=== PATIENT | male | born 1975 | race Caucasian/White ===

== ENCOUNTER 2017-05-27 14:49 | Observation (INO) | payer OTHER, SELFPAY ==
[2017-05-27] VITALS (9 sets, daily range): BP systolic 130–193; BP diastolic 62–98; PULSE 52–68; RESP 16–24; TEMP 98.1–98.8; O2SAT 95–100
[~2017-05-27] VITALS: Ht 180.3 cm; Wt 96.0 kg
[~2017-05-27 14:49] MED LIST: PROM25SU8 PO; TYLE3 PO; Z.0.NO CURRENT MEDS
[2017-05-27] MEDS ORDERED: TEST200I13 IM (15:12)
[2017-05-27] MEDS ORDERED: LISI10TA3 PO (15:12)
[2017-05-27] MEDS ORDERED: ONDANSETRON HCL 4 MG/2 ML VIAL IV PUSH ONE (15:15)
[2017-05-27] MEDS ORDERED: SODIUM CHLOR 0.9% 1000 ML INJ 1,000 ML IV ONE ×2 (15:15→16:30)
[2017-05-27] MEDS ORDERED: ASPIRIN 81 MG CHEW TAB PO ONE (15:15)
[2017-05-27] MEDS ORDERED: KETOROLAC TROMETHAMINE 30 MG/ML (IVP) VIAL IV PUSH ONE (15:15)
[2017-05-27] MEDS ORDERED: SODIUM CHLORIDE 0.9% FLUSH 10 ML FLUSH IVF PRN (15:15)
[2017-05-27 15:47] LABS: AUTOMATED NEUTROPHIL # 7.7 TH/MM3 (1.8-7.7); BASOPHIL # 0.1 TH/MM3 (0-0.2); BASOPHIL % 0.6 % (0.0-2.0); EOSINOPHIL # 0.1 TH/MM3 (0-0.4); EOSINOPHIL % 1.2 % (0.0-4.0); HEMATOCRIT 58.8 % (39.0-51.0); HEMO FLAGS DIFF FINAL; LYMPH % 21.7 % (9.0-44.0); LYMPHOCYTE # 2.4 TH/MM3 (1.0-4.8); MEAN CELL VOLUME 88.3 FL (80.0-100.0); MEAN CORPUSCULAR HEMOGLOBIN 30.1 PG (27.0-34.0); MEAN CORPUSCULAR HGB CONC 34.1 % (32.0-36.0); MONO % 8.4 % (0.0-8.0); NEUT % 68.1 % (16.0-70.0); PLATELET COUNT 175 TH/MM3 (150-450); RED BLOOD COUNT 6.66 MIL/MM3 (4.50-5.90); RED CELL DISTRIBUTION WIDTH 13.3 % (11.6-17.2); WHITE BLOOD COUNT 11.2 TH/MM3 (4.0-11.0)
[2017-05-27 15:54] LABS: APTT (PATIENT) 28.5 SEC (24.3-30.1); PROTHROMBIN TIME - PATIENT 11.4 SEC (9.8-11.6)
--- NOTE | 2017-05-27 16:19 | RADRPT ---
EXAM DATE/TIME: 05/27/2017 15:23 [place] COMPARISON: No previous studies available for comparison. INDICATIONS : Chest pain for several weeks. MEDICAL HISTORY : Hypertension. SURGICAL HISTORY : None. ENCOUNTER: Initial ACUITY: 2 weeks PAIN SCORE: 10/10 LOCATION: Bilateral chest FINDINGS: Portable AP view of the chest demonstrates a normal-sized cardiac silhouette. No effusion, consolidat ion, or pneumothorax is visualized. The bones and soft tissues demonstrate no acute abnormality. CONCLUSION: No acute cardiopulmonary abnormality is identified. Antony Cassidy MD on May 27, 2017 at 16:17 Board Certified Radiologist. This report was verified electronically.
[2017-05-27 16:29] LABS: ANION GAP 10 MEQ/L (5-15); BICARBONATE 23.4 MEQ/L (21.0-32.0); BLOOD UREA NITROGEN 21 MG/DL (7-18); CHLORIDE 108 MEQ/L (98-107); CREATINE KINASE 172 U/L (39-308); GLOMERULAR FILTRATION RATE 70 ML/MIN (>89); POTASSIUM 4.1 MEQ/L (3.5-5.1); SODIUM (NA) 141 MEQ/L (136-145)
[2017-05-27 16:41] LABS: CKMB 2.4 NG/ML (0.5-3.6)
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
[2017-05-27] MEDS ORDERED: ONDANSETRON HCL 4 MG/2 ML VIAL IV PRN (17:00)
[2017-05-27] MEDS ORDERED: SODIUM CHLORIDE 0.9% FLUSH 10 ML FLUSH IV FLUSH PRN (17:00)
[2017-05-27] MEDS ORDERED: ACETAMINOPHEN 500 MG CPLT PO PRN (17:00)
[2017-05-27] MEDS ORDERED: NEXI20CA PO (19:36)
[2017-05-27 19:44] LABS: CREATINE KINASE 323 U/L (39-308)
[2017-05-27 19:56] LABS: CKMB 1.6 NG/ML (0.5-3.6)
[2017-05-27] MEDS ORDERED: IBUPROFEN 600 MG TAB PO PRN (20:00)
[2017-05-27] MEDS: SODIUM CHLORIDE 0.9% FLUSH 10 ML FLUSH IV FLUSH SCH (21:32)
[2017-05-27 22:23] LABS: CREATINE KINASE 124 U/L (39-308)
[2017-05-27 22:36] LABS: CKMB 1.9 NG/ML (0.5-3.6)
[2017-05-28 02:57] VITALS: PULSE 51
[2017-05-28 03:53] VITALS: BP 135/63; PULSE 45; RESP 18; TEMP 98.7; O2SAT 97
[2017-05-28 08:34] VITALS: BP 124/68; PULSE 56; RESP 14; TEMP 98.6; O2SAT 97
--- NOTE | 2017-05-28 09:38 | HHI.HP ---
HPI Primary Care Physician Julius Saldivar DO Chief Complaint Chest pain History of Present Illness This is a 41-year-old male that presents to ED with a complaint of chest discomfort. 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 He describes as a squeezing and stabbing discomfort. Nothing seemed to worsen or improve it. He was short of breath at times with it. No nausea or diaphoresis. Denies personal history of CAD but states that his mother had a bypass at age 57 and his father had a stroke in his 50s. Patient denies recent illness. Denies fevers or chills. Review of Systems General: Patient denies fevers, chills recent, and recent travel HEENT: Patient denies headache, sore throat, difficulty swallowing. Cardiovascular: Has the chest discomfort as mentioned above. Denies sensation of heart beating rapidly or irregularly. No syncope. Denies diaphoresis. Respiratory: He was short of breath. Denies inspirational chest discomfort. Denies coughing wheezing or hemoptysis. GI: Patient denies nausea, vomiting, diarrhea, abdominal pain, bloody stools. Musculoskeletal: Patient denies joint pain or edema. Denies calf pain or edema. Neurovascular: Patient denies numbness, tingling, weakness in extremities. Denies headache. Endocrine: Denies polyuria and polydipsia. Hematologic: Denies easy bruising. Skin: Denies rash or itching. Past Family Social History Allergies: Coded Allergies: No Known Allergies (Unverified , 05/27/17) Past Medical History Hypertension, GERD. Denies hyperlipidemia diabetes, and known CAD. Past Surgical History Noncontributory. Reported Medications Reported Meds & Active Scripts Active Reported Nexium (Esomeprazole DR) 20 Mg Capdr 20 Mg PO DAILY Testosterone Enanthate Inj (Testosterone Enanthate) 200 Mg/Ml Inj 200 Mg IM Q15D Lisinopril 10 Mg Tab 10 Mg PO DAILY Active Ordered Medications Current Medications Medications (Trade) Dose Ordered Sig/David Route Start Time Stop Time Status Last Admin (NS Flush) 2 ml UNSCH PRN IVF 05/27/17 15:15 (NS Flush) 2 ml UNSCH PRN IV FLUSH 05/27/17 17:00 (NS Flush) 2 ml BID IV FLUSH 05/27/17 21:00 05/27/17 21:32 (Tylenol) 500 mg Q4H PRN PO 05/27/17 17:00 (Zofran Inj) 4 mg Q6H PRN IV 05/27/17 17:00 (Motrin) 600 mg Q6H PRN PO 05/27/17 20:00 05/27/17 21:32 Family History Mother had a bypass age 57. Father had a CVA in his 50s. Social History At and is a nonsmoker. Denies alcohol or illicit drugs. Physical Exam Vital Signs Vital Signs Date Time Temp Pulse Resp B/P Pulse Ox O2 Delivery O2 Flow Rate FiO2 05/28/17 08:34 98.6 56 14 124/68 97 05/28/17 08:13 21 05/28/17 03:53 98.7 45 18 135/63 97 05/28/17 02:57 51 05/27/17 23:34 98.4 68 18 150/72 95 05/27/17 20:59 52 05/27/17 19:32 98.2 63 18 130/64 97 05/27/17 17:53 98.8 54 16 131/62 98 05/27/17 16:18 58 18 146/67 100 Room Air 05/27/17 15:15 100 Nasal Cannula 2 05/27/17 15:15 100 Nasal Cannula 2 05/27/17 15:13 98.1 65 20 193/98 100 Nasal Cannula 2 05/27/17 15:09 73 20 Nasal Cannula 2 05/27/17 14:57 68 24 143/65 100 Physical Exam GENERAL: This is a well-nourished, well-developed patient, in no apparent distress. Patient speaks in clear complete sentences. Patient is pleasant. HEENT: Head is atraumatic and normocephalic. Neck is supple without lymphadenopathy and trachea is midline. No JVD or carotid bruits. CARDIOVASCULAR: Regular rate and rhythm without murmurs, gallops, or rubs. RESPIRATORY: Clear to auscultation. Breath sounds equal bilaterally. No wheezes , rales, or rhonchi. Chest wall is nontender. No use of accessory muscles. GASTROINTESTINAL: Abdomen is nontender, nondistended. Abdomen soft. No obvious pulsatile mass or bruit. No CVA tenderness. Strong femoral pulses bilaterally. Normal bowel sounds in all quadrants. MUSCULOSKELETAL: Patient is moving upper and lower extremities freely. No calf tenderness or edema, no Homans sign. Strong pulses in upper and lower extremities. NEUROLOGICAL: Patient is alert and oriented. Cranial nerves 2-12 are grossly intact. No focal deficits and speech is clear. SKIN: No rash and turgor is normal. Laboratory Laboratory Tests Test 05/27/17 05/27/17 05/27/17 15:15 18:10 21:40 White Blood Count 11.2 Red Blood Count 6.66 Hemoglobin 20.1 Hematocrit 58.8 Mean Corpuscular Volume 88.3 Mean Corpuscular Hemoglobin 30.1 Mean Corpuscular Hemoglobin 34.1 Concent Red Cell Distribution Width 13.3 Platelet Count 175 Mean Platelet Volume 8.1 Neutrophils (%) (Auto) 68.1 Lymphocytes (%) (Auto) 21.7 Monocytes (%) (Auto) 8.4 Eosinophils (%) (Auto) 1.2 Basophils (%) (Auto) 0.6 Neutrophils # (Auto) 7.7 Lymphocytes # (Auto) 2.4 Monocytes # (Auto) 0.9 Eosinophils # (Auto) 0.1 Basophils # (Auto) 0.1 CBC Comment DIFF FINAL Differential Comment Prothrombin Time 11.4 Prothromb Time International 1.0 Ratio Activated Partial 28.5 Thromboplast Time Sodium Level 141 Potassium Level 4.1 Chloride Level 108 Carbon Dioxide Level 23.4 Anion Gap 10 Blood Urea Nitrogen 21 Creatinine 1.14 Estimat Glomerular Filtration 70 Rate Random Glucose 84 Calcium Level 9.4 Total Creatine Kinase 172 323 124 Creatine Kinase MB 2.4 1.6 1.9 Troponin I LESS THAN 0.02 LESS THAN 0.02 LESS THAN 0.02 B-Type Natriuretic Peptide 17 Lipase 155 Creatine Kinase MB % 0.5 Result Diagram: 05/27/17 1515 05/27/17 1515 Imaging Last 48 hours Impressions Chest X-Ray 05/27/17 1512 Signed Impressions: Service Date/Time: May 15:23 - CONCLUSION: No acute cardiopulmonary abnormality is identified. Antony Cassidy MD Course EKGs have sinus rhythm without ST segment depressions or elevations. Assessment and Plan Assessment and Plan * Chest pain: Patient had serial cardiac enzymes and EKGs for ruling out purposes. He was seen by Dr. Tong and had a Vick protocol ETT which revealed inferior lateral ST changes. Dr. Tong's requested and I had the patient admitted and consult Dr. Thorne for likely cardiac catheterization. Heparin will be started. We'll hold beta faviola at this time as he is bradycardic and statin as he has history of elevated LFTs. We will get repeat LFT studies at this time. * Hypertension: Continue current medication. Patient is agreeable to this plan. He has been admitted now to Dr. Cee and Dr. Thorne has been counseled to. Epifanio Hollis May 28, 2017 09:38
--- NOTE | 2017-05-28 09:46 | TR ---
Date Performed: 05/28/2017 Time Performed: 09:10:09 DOCTOR: Joanne Tong DRUG LIST: CLINICAL HISTORY: REASON FOR TEST: REASON FOR ENDING: OBSERVATION: CONCLUSION: Vick protocol performed. Test stopped after reaching maximum target heart rate. Dis comfort that he came in with did not worsen during test. Maximum JC=284 Target HR Achieved=93.0% Maxi mum BX=479/80 Total Exercise Time=11:00. ST segment depression noticed in inferior leads during exerc ise peak. In recovery period ST segment returned to baseline. COMMENTS:
[2017-05-28] MEDS ORDERED: RESP: ALBUTEROL 2.5 MG/IPRATROPIUM 0.5 MG NEB (PRN) INH (10:30)
[2017-05-28] MEDS ORDERED: PANTOPRAZOLE SOD 20 MG DELAYED RELEASE TAB PO SCH (11:00)
[2017-05-28] MEDS ORDERED: LISINOPRIL 10 MG TAB PO SCH (11:00)
[2017-05-28] MEDS ORDERED: SODIUM CHLOR 0.9% 1000 ML INJ 1,000 ML IV SCH (11:00)
[2017-05-28] MEDS: SODIUM CHLORIDE 0.9% FLUSH 10 ML FLUSH IV FLUSH SCH (11:05)
[2017-05-28 11:50] VITALS: BP 178/93; PULSE 71; RESP 18; TEMP 98.5; O2SAT 100
[2017-05-28] MEDS ORDERED: NITROGLYCERIN 0.4 MG SL 25 TABS/BTL SL ONE (11:56)
[2017-05-28] MEDS ORDERED: NITROGLYCERIN 2% OINT 1 GM PACKET TOPICAL SCH (12:00)
[2017-05-28] MEDS ORDERED: HEPARIN-NS/PF INJ 500 ML ONE (12:36)
[2017-05-28] MEDS ORDERED: VERAPAMIL HCL 5 MG/2 ML VIAL ONE (12:37)
[2017-05-28] MEDS ORDERED: NITROGLYCERIN INJ 5 ML ONE (12:37)
[2017-05-28] MEDS ORDERED: MIDAZOLAM HCL 2 MG/2 ML VIAL ONE (12:37)
[2017-05-28] MEDS ORDERED: HEPARIN SODIUM - IV 10,000 UNITS/10 ML VIAL ONE (12:37)
--- NOTE | 2017-05-28 13:41 | CATHPROC ---
[employer] HIS Report Study Information Study Number Admission Scheduled Start Study Start [id number] May 27 2017 4:59PM 05/28/2017 May 28 2017 12:09PM [place] Service Cardiac Catheterization Admit Source Facility Department Emergency department [facility] - Program Admin Physician and Clinical Staff Initial MD Thorne, Roel Finished Cloth Checkerchristopher Luna RN, Yesika Gomez RN Circulator Burfield, Dan, RN Other cathlab, cathlab Recorder Stefany Aguilar,POST ANESTHESIA NURSE TECH2 Scrub Nakia Sutherland,INFANT CHILDCARE PROVIDER TECH2 Procedures Performed Procedure Location (Site) Vessel Name Coronary Angiograms LCA Left Coronary Coronary Angiograms RCA Right Coronary L Heart Cath Wire insertion Radial (right) Radial Art. Equipment Time Candy Spreader Helper Description Size Mfg Part Number Used/Scraped TRANSDUCER, TRUWAVE [id number] 12:35 REINA SCOTT * Used W/STOCKCOCK *[id number] 12:51 CORDIS/ JOE JR 4.0 GUIDE CATHETER 55CM FR 6 Used *[id number] *[id number] [id number] *[id number] [id number] *[id number] 12:37 [employer] PACK, CCL CUSTOM * Used *[id number] 12:37 [employer] SUPPORT, ARTERIAL ADULT 90210 Used BAND, RADIAL COMPRESSION TR [id number] 13:22 [employer] 29CM Used LARGE 29 *[id number] 12:37 [employer] WIRE, EXCHANGE 260CM 3MMJ 260CM Used *[id number] 12:35 NAMIC MANIFOLD, 4 PORT * Used *[id number] 12:37 [employer] OMNIPAQUE, 350 MG, 150ML 150ML [id number] Used SHEATH, FR6 TRANSRADIAL [id number] 12:37 [employer] FR 6 Used SLENDER 10CM *[id number] History: Current Medications Medication Dosage/Unit Route Frequency Last Date/Time Taken Nexium LISINOPRIL History: Allergies Allergy Reaction No Known Allergies History: Risk Factors Family History of Hypertension Dyslipidemia Previous MS Previous Heart Failure Premature CAD Yes No Yes No No Prior Valve Prior PCI Prior CABG Surgery No No No Cerebrovascular Peripheral Artery Chronic Lung On Dialysis Diabetes Disease Disease Disease No No No No No History: Other Disease Selection Items Gerd HTN History: Other Current Smoker No Labs Hgb (g/dl) Hct (%) RBC (MIL/MM3) WBC (l/cumm) Platelets (thousands) 11.60-17.00 35.00-51.00 4.00-5.90 4.00-11.00 150.00-450.00 20.1 58.8 6.6 11.2 175 Glucose (mg/dl) BUN (mg/dl) Creatinine (mg/dl) BUN:Creatinine (1:x) 74.00-106.00 7.00-18.00 0.50-1.30 10.00-20.00 84 21 1.1 19.1 Na (meq/l) K (meq/l) Cl (meq/l) CO2 (mmol/L) Ca (mg/dl) 136.00-145.00 3.50-5.10 98.00-107.00 21.00-32.00 8.50-10.10 141 4.1 108 23.4 9.4 PT (sec) PTT (sec) INR (PTT:PT) 9.80-11.60 24.30-30.10 0.90-1.10 11.4 28.6 1 CPK (u/l) CPK-MB (ng/ML) 26.00-308.00 0.50-3.60 124 1.9 Medication Medication Total Dose (Bolus/Oral) Medication Total Dosage/Unit 1% XYLOCAINE 10 mL RADIAL COCKTAIL 5 mL (Bolus) Medications (Bolus/Oral) Medication Time Given Dosage/Unit Administered By Reason 1% XYLOCAINE 05/28/2017 1:01:42 PM 10 mL Roel Thorne 10 mL 1% XYLOCAINE given in lab by Roel Thorne in Right Radial via Subcutaneous. Ordered by Roel Terry. RADIAL COCKTAIL 05/28/2017 1:04:49 PM 5 mL (Bolus) Roel Thorne 5 mL (Bolus) RADIAL COCKTAIL given in lab by Roel Thorne in Right Radial via Radial. Using [Sayra ution Name]. Ordered by Roel Thorne. 200nitro,3800heparin,2.5verapamil Medication (Drip) Medication Time Given Dosage/Unit Concentration/Unit Diluent (ml) Solution IV Solutions 05/28/2017 12:34:08 PM 50 mL (IV) 500 NaCl .9 IV Solutions given in lab by Augusto Luna RN in Left Antecubital via Peripheral IV. Pump/Drip Flow us ing NaCl .9. Ordered by Roel Thorne. Initial Case Assessment Cardiovascular HR NIBP 52 171/96 Edema Present Skin color Skin None Normal Warm Dry Circulatory - Right Pulses Dorsalis Pedis Femoral Radial 3 3 3 Scale (0,1,2,3,4,d) Circulatory - Left Pulses Dorsalis Pedis Femoral Radial 3 3 Scale (0,1,2,3,4,d) Neurological State Oriented to time-place- Alert Moves all extremities person Respiration - General Respiration Rate SpO2 (%) (B/min) 13 99 Final Case Assessment Cardiovascular HR NIBP Chest Pain 56 169/88 0 Edema Present Skin color Skin None Normal Warm Dry Circulatory - Right Pulses Dorsalis Pedis Femoral Radial 3 3 3 Scale (0,1,2,3,4,d) Circulatory - Left Pulses Dorsalis Pedis Femoral Radial 3 3 Scale (0,1,2,3,4,d) Neurological State Oriented to time-place- Alert Moves all extremities person Respiration - General Respiration Rate SpO2 (%) (B/min) 15 97 Chronological Log Time Study Chronological Log 12:31:23 Patient arrived via Bed. 12:31:23 Patient Name, D.O.B, / Armband Verified By R.N. 12:31:24 Consent signed by the physician and the patient and verified by the Program Admin staff. 12:31:25 Pre-op and post- op instructions given; patient acknowledges understanding of instructions. 12:31:27 Patient has been NPO for More than 6Hrs. 12:31:28 NO Skin Breakdown- 12:31:29 Patient Warmer Placed on the Table. 12:31:32 Angie Prominences Protected 12:31:33 A # 20 IV was noted in the Antecubital (left). Grade = 0 IV Solutions given in lab by Jeremy DE LA GARZA, Augusto in Left Antecubital via Peripheral IV. Pump/Drip F low using NaCl .9. Ordered 12:34:08 by Roel Thorne. 12:34:09 History and physical on the chart or being dictated. 12:36:27 Reference ECG taken Vitals capture started with the following parameters, Patient=Adult, Interval=5 min, Initial Pr vikotk=249 mmHg, 12:37:22 Deflation Rate=5 mmHg 12:38:40 HR=62 bpm, XWPD=393/93 mmhg, SpO2=99.0 %, Resp=16 B/min, Pain=10, Risa=10, Bergeron=2 12:43:08 HR=87 bpm, GJJB=552/96 mmhg, SpO2=99.0 %, Resp=13 B/min, Pain=10, Risa=10, Bergeron=2 Assessment: Initial Case, HR=52 BPM, CPHB=219/96 mmhg, Edema=None, Color=Normal, Skin = Warm, D ry Right Pulses: Alec Ped=3, Femoral=3, Radial=3 12:45:43 Left Pulses: Alec Ped=3, Femoral=3 Neurological: State=Alert, Ox3, GIRALDO Respiration: Resp=13 B/min, SpO2=99 % 12:46:24 Pressure channel 1 zeroed. 12:49:33 Vitals capture stopped. Vitals capture started with the following parameters, Patient=Adult, Interval=5 min, Initial Pr btvayh=242 mmHg, 12:52:08 Deflation Rate=5 mmHg 12:52:54 HR=64 bpm, FWWX=710/82 mmhg, SpO2=98.0 %, Resp=17 B/min, Pain=10, Risa=10, Bergeron=2 12:57:55 HR=62 bpm, ONPO=539/90 mmhg, SpO2=98.0 %, Resp=8 B/min, Pain=10, Risa=10, Bergeron=2 Time Out. Correct patient, correct procedure,correct physician, power injector not loaded with contrast with surgical 13:01:00 team present. Time Out Concurred by , individual staff in procedure 13:01:41 Case Start 10 mL 1% XYLOCAINE given in lab by Roel Thorne in Right Radial via Subcutaneous. Ordered by Mati, 13:01:42 Role. 13:02:54 HR=59 bpm, FISB=411/92 mmhg, SpO2=98.0 %, Resp=15 B/min, Pain=10, Risa=10, Bergeron=2 13:03:00 Access site was Radial Artery. 5 mL (Bolus) RADIAL COCKTAIL given in lab by Roel Thorne in Right Radial via Radial. in g [Solution Name]. 13:04:49 Ordered by Roel Thorne. 200nitro,3800heparin,2.5verapamil A JR 4.0 GUIDE CATHETER 55CM FR 6 was advanced over a wire. OMNIPAQUE, 350 MG, 150ML 150ML was used for 13:05:41 injections. Recorded Pressure: LV, HR=67, Condition=Condition 1 13:07:16 (Left Ventricle) LV 141/2/14 Recorded Pressure: LV, Ao, HR=66, Condition=Condition 1 13:07:34 (Left Ventricle) LV 138/6/15, (Aorta) Ao 133/77/102 13:07:57 HR=68 bpm, SKWI=632/76 mmhg, SpO2=97.0 %, Resp=15 B/min, Pain=0, Risa=10, Bergeron=2 Recorded Pressure: Ao, HR=72, Condition=Condition 1 13:08:11 (Aorta) Ao 132/80/104 13:08:35 The RCA was injected and visualized at various angles. OMNIPAQUE, 350 MG, 150ML 150ML used . 13:08:54 PATIENT ARRIVED ON NITRO PATCH, RIGHT UPPER CHEST After removing the current catheter a JL 3.5 INFINITI CATHETER FR 5 was advanced over a WIRE, E XCHANGE 260CM 13:09:16 3MMJ 260CM. 13:12:50 HR=62 bpm, ZJZC=082/82 mmhg, SpO2=96.0 %, Resp=14 B/min, Pain=10, Risa=10, Bergeron=2 13:15:08 The LCA was injected and visualized at various angles. OMNIPAQUE, 350 MG, 150ML 150ML used . 13:17:51 HR=65 bpm, MEPE=034/83 mmhg, SpO2=97.0 %, Resp=15 B/min, Pain=0, Risa=10, Bergeron=2 13:22:50 A WIRE, EXCHANGE 260CM 3MMJ 260CM was inserted via Radial (right). 13:22:54 HR=56 bpm, SGCC=557/88 mmhg, SpO2=98.0 %, Resp=10 B/min, Pain=0, Risa=10, Bergeron=2 13:23:02 Catheter was removed 13:24:45 Catheter(s) removed without difficulty Radial Compression Device Used. 11 mLs of air placed in BAND, RADIAL COMPRESSION TR LARGE 29 29 CM. Affected 13:25:22 hand 98 % O2 saturation. 13:25:38 Case End 13:25:55 No case complications noted. 13:25:57 Cine recording checked. 13:26:01 Bedside Report will be given. 13:26:02 Contrast Scanned 13:26:04 A Left Heart Cath was performed. 13:28:45 Vitals capture stopped. Assessment: Final Case, HR=56 BPM, CGGA=074/88 mmhg, Chest Pain=0, Edema=None, Color=Normal, S kin = Warm, Dry Right Pulses: Alec Ped=3, Femoral=3, Radial=3 13:29:38 Left Pulses: Alec Ped=3, Femoral=3 Neurological: State=Alert, Ox3, GIRALDO Respiration: Resp=15 B/min, SpO2=97 % 13:29:58 [facility] Study - Contrast Media Used In Study Contrast Total Opened (mL) Total Used (mL) Total Wasted (mL) Omnipaque 50 50 0 End Study - Maximum Contrast Load Max Contrast Load (mL) 436.4 End Study - Radiation Exposure Fluoro Time (minutes) 4.1 End Study - Patient Disposition Complications Transferred To Telemetry Bed
[2017-05-28] MEDS ORDERED: MISC INFORMATION XX ONE (14:00)
[2017-05-28] MEDS ORDERED: amLODIPine BESYLATE 5 MG TAB PO SCH (14:00)
--- NOTE | 2017-05-28 14:01 | EKG ---
Date Performed: 05/27/2017 Time Performed: 21:46:57 PTAGE: 41 years EKG: SINUS BRADYCARDIA BORDERLINE ECG Since PREVIOUS TRACING , no significant change noted PREVIOUS TRACIN05/27/2017 18.30 DOCTOR: Joanne Tong Interpretating Date/Time 05/28/2017 13:59:56
--- NOTE | 2017-05-28 14:05 | EKG ---
Date Performed: 05/27/2017 Time Performed: 18:30:10 PTAGE: 41 years EKG: Sinus rhythm NONSPECIFIC T-WAVE ABNORMALITY BORDERLINE ECG Since PREVIOUS TRACING , no significant change noted PREVIOUS TRACIN05/27/2017 15.08 DOCTOR: Joanne Tong Interpretating Date/Time 05/28/2017 14:03:18
--- NOTE | 2017-05-28 14:06 | EKG ---
Date Performed: 05/27/2017 Time Performed: 14:50:36 PTAGE: 41 years EKG: Sinus rhythm MODERATE VOLTAGE CRITERIA FOR LVH, CONSIDER NORMAL VARIANT NONSPECIFIC T-WAVE ABNORMALITY BORDERLINE ECG NO PREVIOUS TRACING DOCTOR: Joanne Tong Interpretating Date/Time 05/28/2017 14:05:08
--- NOTE | 2017-05-28 14:06 | EKG ---
Date Performed: 05/27/2017 Time Performed: 15:08:05 PTAGE: 41 years EKG: Sinus rhythm MODERATE VOLTAGE CRITERIA FOR LVH, CONSIDER NORMAL VARIANT BORDERLINE ECG Since PREVIOUS TRACING , no significant change noted DOCTOR: Joanne Tong Interpretating Date/Time 05/28/2017 14:04:55
[2017-05-28] MEDS ORDERED: IOHEXOL 350 MG/ML 50 ML BTL (for Cath Lab) OTHER ONE (15:58)
--- NOTE | 2017-05-28 16:37 | ECHRPT ---
Indication: Chest pain, unspecified CONCLUSIONS The left ventricular systolic function is normal with an estimated ejection fraction in the range of 55-60%. Wall thickness is normal. Normal right ventricular size and systolic function. No significant valvular disease BP: 178 / 93 HR: 71 Rhythm: Sinus MEASUREMENTS (Male / Female) Normal Values Technical Quality:Good 2D ECHO LV Diastolic Diameter PLAX 4.8 cm 4.2 - 5.9 / 3.9 - 5.3 cm LV Systolic Diameter PLAX 3.6 cm IVS Diastolic Thickness 1.2 cm 0.6 - 1.0 / 0.6 - 0.9 cm LVPW Diastolic Thickness 0.8 cm 0.6 - 1.0 / 0.6 - 0.9 cm LV Relative Wall Thickness 0.4 RV Internal Dim ED PLAX 2.3 cm LA Systolic Diameter LX 3.3 cm 3.0 - 4.0 / 2.7 - 3.8 cm M-MODE Aortic Root Diameter MM 3.2 cm AV Cusp Separation MM 2.1 cm DOPPLER AV Peak Velocity 185.0 cm/s AV Peak Gradient 13.7 mmHg LVOT Peak Velocity 88.8 cm/s LVOT Peak Gradient 3.2 mmHg MV Peak Velocity 108.0 cm/s MV Peak Gradient 4.7 mmHg MV Mean Velocity 50.1 cm/s MV Mean Gradient 1.0 mmHg Mitral E Point Velocity 87.4 cm/s Mitral A Point Velocity 52.3 cm/s Mitral E to A Ratio 1.7 TR Peak Velocity 167.0 cm/s TR Peak Gradient 11.2 mmHg FINDINGS LEFT VENTRICLE Normal left ventricular size. Wall thickness is normal. The left ventricular systolic function is normal with an estimated ejection fraction in the range of 55-60%. No regional wall motion abnormalities are present. RIGHT VENTRICLE Normal right ventricular size and systolic function. LEFT ATRIUM The left atrial size is normal. RIGHT ATRIUM The right atrial size is normal. ATRIAL SEPTUM Normal atrial septal thickness without atrial level shunting by limited color doppler interrogation. AORTA The aortic root and proximal ascending aorta are normal in size on limited imaging. MITRAL VALVE Structurally normal mitral valve. No mitral valve stenosis or regurgitation. AORTIC VALVE Trileaflet aortic valve. No aortic valve stenosis or regurgitation. TRICUSPID VALVE Structurally normal tricuspid valve. No tricuspid valve stenosis or regurgitation. PULMONARY VALVE The pulmonary valve is not well visualized. VESSELS The inferior vena cava is normal in size. PERICARDIUM No pericardial effusion. Roel Thorne DO (Electronically Signed) Final Date:28 May 2017 16:36
[2017-05-28] MEDS ORDERED: AMLO5 PO (16:40)
[2017-05-28] MEDS ORDERED: ASPI-110 PO (16:40)
--- NOTE | 2017-05-28 16:47 | HHI.DS ---
Discharge Summary Admission Date May 27, 2017 at 16:59 Discharge Date: May 28, 2017 Admitting Diagnosis Chest Pain (1) Chest pain Diagnosis: Principal Brief History Presented with chest pain, negative cardiac enzymes. Chest pain does not come on with strenuous activity (kickboxing) but during emotional times. Underwent exercise stress testing with some ST segment changes. Recommended cardiac catheterization. During the catheterization, found to have a 60% ostial lesion in the first diagonal, which covers a small overall amount of myocardium. Will plan to attempt medical management. Added Norvasc 5mg. If blood pressure elevated outpatient then this can be increased. Needs to stop steroids as he has significant polycythemia which may impact this. If further chest pain, will consider stenting although concern for imposing on the LAD for such a small territory of myocardium. Abnormal exercise stress test mostly likely due to his baseline changes in the inferior leads. CBC/BMP: 05/27/17 1515 05/27/17 1515 Significant Findings Laboratory Tests Test 05/27/17 05/27/17 05/27/17 15:15 18:10 21:40 White Blood Count 11.2 TH/MM3 (4.0-11.0) Red Blood Count 6.66 MIL/MM3 (4.50-5.90) Hemoglobin 20.1 GM/DL (13.0-17.0) Hematocrit 58.8 % (39.0-51.0) Monocytes (%) (Auto) 8.4 % (0.0-8.0) Chloride Level 108 MEQ/L (98-107) Blood Urea Nitrogen 21 MG/DL (7-18) Estimat Glomerular Filtration 70 ML/MIN (>89) Rate Troponin I LESS THAN 0.02 LESS THAN 0.02 LESS THAN 0.02 NG/ML NG/ML NG/ML (0.02-0.05) (0.02-0.05) (0.02-0.05) Total Creatine Kinase 323 U/L (39-308) Pt Condition on Discharge: Good Discharge Disposition: Discharge Home Discharge Instructions DIET: Follow Instructions for: Heart Healthy Diet Activities you can perform: See Additionl Instruction Additional Activity Instructio: No lifting more than 10 lbs for 3 days Roel Thorne DO May 28, 2017 16:47
[2017-05-28] MEDS ORDERED: METOPROLOL TARTRATE 25 MG TAB PO SCH (21:00)
--- NOTE | 2017-05-28 21:25 | MH ---
cc: DORIS SHIRLEY DO DATE OF ADMISSION 05/27/2017 REASON FOR ADMISSION Chest pain with abnormal stress test. HISTORY OF PRESENT ILLNESS Edward Yu is a pleasant 41-year-old male who presented to [facility] Emergency Room due to chest pain. It began the day before while he was working and persisted throughout the day. He woke up on the morning of May 27, 2017 with pain and decided he should come to the emergency room. [facility] and underwent an exercise stress test which showed ST depressions in the inferior leads. Because of this he was recommended cardiac catheterization. In seeing him he continues to have chest pain which is somewhat of a pressure squeezing around the chest. He states that he has had this in the past but not this severe. He does not get it during extreme exercise while he is doing kick boxing but notices it more when he gets emotionally upset. PAST MEDICAL HISTORY 1. Hypertension. 2. Gastroesophageal reflux disease. PAST SURGICAL HISTORY Denies. ALLERGIES NO KNOWN DRUG ALLERGIES. MEDICATIONS 1. Testosterone 200 milligrams every 15 days. 2. Lisinopril 10 milligrams daily. 3. Norvasc 5 milligrams daily. 4. Aspirin 81 milligrams daily. 5. Nexium 20 milligrams daily. FAMILY HISTORY Mother had bypass at the age of 57. Father had a stroke in his 50s. SOCIAL HISTORY The patient denies alcohol, drugs or tobacco history. He does take testosterone given by a physician due to training. REVIEW OF SYSTEMS 14-systems were reviewed including osteopathic. Pertinent positives and negatives above otherwise negative. PHYSICAL EXAMINATION VITAL SIGNS: Temperature 98.6, heart rate 56, blood pressure 124/64, respirations 14, pulse ox 97% on room air. GENERAL: In general, the patient appears mildly distressed with chest pain. Alert, awake and oriented x3. Extraocular muscles intact. Mucous membranes moist. NECK: Supple. No JVD at 45 degrees. No carotid bruits heard bilaterally. Carotid upstroke is brisk in nature. HEART: Heart is regular rate and rhythm. Positive first and second heart sounds with no noted murmurs, gallops or rubs. LUNGS: Lungs are clear to auscultation bilaterally. No wheezes, rales or rhonchi. ABDOMEN: Soft, nontender, nondistended. No organomegaly noted. EXTREMITIES: Show no clubbing, cyanosis or edema. Femoral and distal pulses intact bilaterally. NEUROLOGICALLY: No focal deficits. SKIN: Warm, dry and intact. OSTEOPATHIC: No kyphoscoliosis, lordosis or paraspinal tender points. LABORATORY FINDINGS Hemoglobin 20.1, hematocrit 58.8, platelets 175. Potassium 4.1, BUN 21, creatinine 1.14. Troponin negative x3. BNP 17. CARDIOLOGY STUDIES Electrocardiogram (May 27, 2017 at 21:46) sinus bradycardia with T-wave inversions in the inferior leads. Exercise stress test (May 28, 2017) exercise for 11 minutes, reaching 93% of maximum heart rate. ST depressions in the inferior leads of [address] changes, return to normal quickly after exercise was stopped. IMPRESSION 1. Chest pain concerning for coronary insufficiency. 2. Accelerated hypertension with a blood pressure of 193/98 on arrival. 3. Mild EKG changes. 4. Abnormal stress test showing ST depression in the inferior leads after 11 minutes of exercise. 5. Steroid use for working out under physician guidance. 6. Polycythemia. RECOMMENDATIONS 1. Mr. Yu appears to have had chest pain which may be due to coronary insufficiency versus accelerated hypertension. 2. During a stress test he did have ST depressions in the inferior leads and because of this he was recommended cardiac catheterization. 3. Risks, benefits and alternatives were explained to him and he consents as such. 4. We will check a 2-D echo to look at his overall left ventricular function, cardiac structure and possible vulvopathies. 5. Polycythemia is most likely due to steroid use. 6. I have instructed him that he should most likely discontinue his steroid use if in fact he does have coronary artery disease. On top of this, he appears to have uncontrolled hypertension and this needs to be further controlled with medications and decreasing steroid use. 7. Further recommendations will be made after coronary visualization. Thank you for allowing me to see Edward Yu. If there are any questions please do not hesitate to call. Doris Shirley DO VGP/EO /8:32 PM /8:55 PM
--- NOTE | 2017-05-28 22:35 | MA ---
cc: DORIS SHIRLEY DO DATE May 28, 2017 PROCEDURE Left heart catheterization, coronary angiogram, moderate sedation 20 minutes. PREPROCEDURE DIAGNOSIS Chest pain, abnormal exercise stress test. POSTPROCEDURE DIAGNOSIS Moderate coronary artery disease, accelerated hypertension. MEDICATIONS 1. Versed 1 milligram. 2. Verapamil 2.5 milligrams. 3. Nitro 200 micrograms. 4. Heparin 3800 units. CONTRAST USED 50 cc. FLUOROSCOPY 4.1 minutes MODERATE SEDATION 28 minutes. ESTIMATED BLOOD LOSS 10 cc. PROCEDURAL SUMMARY Edward Yu is a pleasant 41-year-old male who originally presented to [facility] with chest pain. He underwent exercise stress test which showed a change from his baseline T-wave changes in the inferior lead to be ST depressions and was recommended cardiac catheterization. Risks, benefits and alternatives were explained to him and he consent as such. He was brought to the lab and prepped in the usual sterile fashion. Right radial artery was accessed using a modified Seldinger technique and placement of a 5/6 [place] sheath. This was easily aspirated and flushed. A JR-4 was advanced over a J-wire to the ascending aortic root and across the aortic valve for measurement of left ventricular pressure. This was pulled back across the aortic valve showing no significant gradient of aortic stenosis. JR-4 was used for selective angiography of the right coronary artery. This was exchanged out for a JL-3.5 which was used for selective angiography of the left coronary artery. JL-3.5 was removed over a J-wire. A radial band was placed over the arteriotomy site for hemostasis. 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 FINDINGS Left main normal size vessel with no significant disease. It bifurcates into an LAD and circumflex. LAD is a normal-size vessel with no significant disease throughout. It gives off three diagonals with first two diagonals being small and the third diagonal larger. The second diagonal has an ostial stenosis of 70% and is overall a normal caliber vessel but covers a very small area of myocardium. Left circumflex is a normal-sized vessel which gives off two major obtuse marginals. There is no significant disease through the marginals. RCA is a normal-size vessel and dominant in nature. There is mild luminal irregularities throughout the midportion but otherwise no disease. LVEDP 15. IMPRESSION 1. Moderate coronary artery disease in a diagonal branch that covers a small area of myocardium. 2. Abnormal exercise stress test with baseline EKG changes. 3. Chest pain with emotional stress but not during extreme exertion when training. 4. Physician guided steroid use during training. 5. Accelerated hypertension with a blood pressure of 190/90 on arrival to the emergency room. RECOMMENDATIONS 1. Edward Yu presented with chest pain and appears somewhat atypical as it seems to come on with emotional stress but not exertion. He was also noted to have accelerated hypertension with a blood pressure 190/90 and he states that his blood pressure has been significantly higher lately. 2. During the exercise stress test he was noted to have baseline inferior changes and these became more prominent during exercising, although, he did 11 minutes without pain. 3. During his catheterization he was found to have moderate disease in the ostial portion of a diagonal branch which covers a small area of myocardium. 4. For now I would suggest medical management of his diagonal disease including better control of his blood pressure, and consideration of stopping steroids for training as he does have polycythemia which overall would not be helpful with his coronary artery disease. 5. He will be placed on Norvasc 5 milligrams and continue his lisinopril. If his blood pressure does not respond then he can be placed on 10 milligrams daily of Norvasc. 6. He will be discharged home after a 2-D echo as long as there is no concern on imaging. 7. I left him my card and if he does continue to have pain he will give me a call and we can discuss possibly stenting of his diagonal, although, my major concern is that the diagonal covers a very small portion of the myocardium and this may impede somewhat on his LAD which is a much larger vessel and covers a large area of myocardium. Thank you for allowing me to see Edward Yu. If there are any questions please do not hesitate to call. Doris Shirley DO VGP/EO /9:55 PM /10:15 PM
== END 2017-05-28 17:14 | disposition home or self-care (01) ==
LOC: NEPE 14:49 → NEDA 16:59 → NEPHCDU 17:53 → HCIS 05-28 15:02
PROVIDERS: ADMIT Nuclear Medicine Nuclear Cardiology; ATTEND Nuclear Medicine Nuclear Cardiology
DX: R07.89 Other chest pain (principal); I25.10 Atherosclerotic heart disease of native coronary artery without angina pectoris; I10 Essential (primary) hypertension; D75.1 Secondary polycythemia; E86.0 Dehydration; J45.909 Unspecified asthma, uncomplicated; F41.9 Anxiety disorder, unspecified; R94.39 Abnormal result of other cardiovascular function study; R00.1 Bradycardia, unspecified; K21.9 Gastro-esophageal reflux disease without esophagitis; Z82.3 Family history of stroke; Z79.899 Other long term (current) drug therapy; Z79.82 Long term (current) use of aspirin
CPT/HCPCS: 71010; 80048; 82550; 82552; 83690; 83880; 84484; 85025; 85610; 85730; 93005; 93017; 93306; 93454; 96374; 96375; 99285; C1769; C1893; G0378; J1644; J1885; J2250; J2405; J7030; Q9967